=== PATIENT | female | born 1950 | race Caucasian/White ===

== ENCOUNTER → 2021-10-12 00:36 | Outpatient (CLI) | payer MEDICARE, OTHER, SELFPAY ==
--- OUTSIDE RECORDS SUMMARY | 2021-10-12 00:41 | XMS_ITS | Encounter Summary ---
:1950 Author Organization [facility] Address [address] [place] [address] Care Team Providers Name Role Phone Valerie Toledo MD Primary Care Provider Encounter Details Date Type Department Care Team Description 02/07/2014 Results Only [facility] Pablito Toledo MD Laboratory Services - [address] [facility] [address] [place] [address] [facility] [place] [address] [phone] Social History Tobacco Use Types Packs/Day Years Used Date Never Assessed Sex Assigned at Date Recorded Not on file documented as of this encounter Plan of Treatment Not on filedocumented as of this encounter Procedures Procedure Name Priority Date/Time Associated Diagnosis Comme nts PAP TEST- RESULT Routine 02/07/2014 0:00 EDT Resu lts for this ONLY procedure are i n the results section. documented in this encounter Results PAP TEST- RESULT ONLY (02/07/2014 0:00 EDT) Pathology Report: CYTOPATHOLOGY REPORT [facility] Reports generated via electronic interface contain tripp ginal data; however they are lacking the format of the original re port. Caution should be taken when reading/interpreting unfo rmatted reports. Name: ? GARCÍA DAVISON ? Accession #: ? [id number] ? : ? 1950 (Age: 63) ??F ?Collect Da te: ? 02/07/2014 ? [facility] ? [facility] ? Receive Date: ? 02/10/20 14 ? Provider: VALERIE TOLEDO MD Copy to: ? Final Report SPECIMEN ADEQUACY ? Satisfactory for Evaluation - assessment of transformation zone component not appl icable ( e.g. atrophy, vaginal sample, hysterectomy) GENERAL CATEGORIZATION ? Negative for Intraepithelial Lesion or Malignan cy ?? Menstrual/ Status: ??Menopausal Specimen/Source: ??Pap Test, Cervix, ThinPrep Imaging System with manual evaluation Document reviewed and electronically signed by: ? Chris Greenfield, CT(ASCP) ? Report ??Date: 02/14/2014 14:15 HPV with Pap Test ? Date Ordered: ? 02/14/2014 ? Status: ?? Signed Out ?Date Complete: ? 02/16/2014 ? By: ??S ystem Interface ? Date Reported: ? 02/16/2014 ? Interpretation RESULT: Negative for HPV. No E6 or E7 mRNA is detected from HPV types 16,18,31,3 3,35, 39,45,51,52,56,58,59,66, and 68 by flame cutter media len amplification. Comments Document reviewed and electronically signed by: ? System Interface ? Report date: 02/16/2014 By the signature above, the attending physician certif ies that he/she has personally conducted a gross and/or microscopic examin ation of the described specimens and rendered or confirmed the above diagnosi s. End of Report Specimen Performing Organization Address City/State/ZIP Code Phon e Number [facility] [address] [place] [address] SERVICES [facility] [address] [place] [address] documented in this encounter Visit Diagnoses Not on filedocumented in this encounter Care Teams Special Events Coordinator Relationship Specialty Start Date End Date Valerie Toledo MD PCP - General 11/02/08 [address] [place] [address] documented as of this encounter
--- OUTSIDE RECORDS SUMMARY | 2021-10-12 00:41 | XMS_ITS | Encounter Summary ---
:1950 Author Organization [facility] Address [address] [place] [address] Care Team Providers Name Role Phone Valerie Toledo MD Primary Care Provider Encounter Details Date Type Department Care Team Description 02/12/2013 Hospital Encounter [facility] - S Unknown, Pro Timothy zayas MD 1 [facility] [phone] [place] [address] (Work) [phone] Social History Tobacco Use Types Packs/Day Years Used Date Never Assessed Sex Assigned at Date Recorded Not on file documented as of this encounter Discharge Disposition Disposition Code Departure Means Destination Home or Self Shelter documented in this encounter Plan of Treatment Not on filedocumented as of this encounter Visit Diagnoses Not on filedocumented in this encounter Care Teams Comber Fixer Relationship Specialty Start Date End Date Valerie Toledo MD PCP - General 11/02/08 [address] [facility],[address] [place] [address] documented as of this encounter
--- OUTSIDE RECORDS SUMMARY | 2021-10-12 00:41 | XMS_ITS | Encounter Summary ---
:1950 Author Organization [facility] Address [address] [place] [address] Care Team Providers Name Role Phone Valerie Toledo MD Primary Care Provider Encounter Details Date Type Department Care Team Description 04/17/2009 Hospital Encounter [facility] - Danilo Toledo MD Other [id number] [place] [id number] (Wo rk) Social History Tobacco Use Types Packs/Day Years Used Date Never Assessed Sex Assigned at Date Recorded Not on file documented as of this encounter Discharge Disposition Disposition Code Departure Means Destination Home or Self Care documented in this encounter Plan of Treatment Not on filedocumented as of this encounter Visit Diagnoses Not on filedocumented in this encounter Care Teams Parish Visitor Relationship Specialty Start Date End Date Valerie Toledo MD PCP - General 11/02/08 [address] [place] [address] documented as of this encounter
--- OUTSIDE RECORDS SUMMARY | 2021-10-12 00:41 | XMS_ITS | Encounter Summary ---
:1950 Author Organization [facility] Address [address] [place] [address] Care Team Providers Name Role Phone Valerie Toledo MD Primary Care Provider Encounter Details Date Type Department Care Team Description 08/06/2017 Hospital Encounter [facility]- Heidi Unknown, Provider, [facility] 7[address] [facility] [phone] [place] [address] (Work) [phone] Social History Tobacco Use Types Packs/Day Years Used Date Never Assessed Sex Assigned at Date Recorded Not on file documented as of this encounter Discharge Disposition Disposition Code Departure Means Destination Home or Self Penitentiary documented in this encounter Plan of Treatment Not on filedocumented as of this encounter Visit Diagnoses Not on filedocumented in this encounter Care Teams Elephant Tamer Relationship Specialty Start Date End Date Valerie Toledo MD PCP - General 11/02/08 79 [facility] 1 [place] [address] documented as of this encounter
--- OUTSIDE RECORDS SUMMARY | 2021-10-12 00:41 | XMS_ITS | Encounter Summary ---
:1950 Author Organization [facility] Address [address] [place] [address] Care Team Providers Name Role Phone Unavailable Primary Care Provider Unavailable Encounter Details Date Type Department Care Team Description 10/28/2008 Orders Only [facility] Sergio Curran MD Laboratory Services - [address] [place] [address] [address] [facility] [place], [place] [address] [phone] Social History Tobacco Use Types Packs/Day Years Used Date Never Assessed Sex Assigned at Date Recorded Not on file documented as of this encounter Plan of Treatment Not on filedocumented as of this encounter Procedures Procedure Name Priority Date/Time Associated Diagnosis Comme [facility] SURGICAL PATHOLOGY Routine 10/28/2008 0:00 EDT Re sults for this procedure are i n the results section. documented in this encounter Results SURGICAL PATHOLOGY (10/28/2008 0:00 EDT) Pathology Report: SURGICAL PATHOLOGY REPORT ? [facility] Reports generated via ForMune interface contain original data; ? LAB however they are lacking the format of the original report. ? Caution should be taken when reading/interpreting unformatted reports. ? Name: ? GREEN, GARCÍA ? Accession #: ? [id number] ? : ? 1950 (Age: 57) ??F ? Collec t Date: ? 10/28/2008 ? Location: ? [facility] ? Re ceive Date: ? 10/31/2008 ? Provider: KALEB CURRAN MD ? Copy to: ISIDRO MONIQUE MD ? Final Pathologic Diagnosis: ? Gallbladder, cholecys tectomy: ? 1. ?Chronic cho lecystitis. ? 2. ? Cholelithiasis. ? Document reviewed and electr onically signed by: ? Theo J. Candelaria, MD ? Report ??Date: 11/02/2008 16 :49 ? By the signature above, the attending physician certifies that he/she has ? personally conducted a gross and/or microscopic examination of the described ? specimens and rendered or co nfirmed the above diagnosis. ? Specimen(s) Received: ? Gallbladder ? Clinical History: ? Cholecystitis ? Gross Description: ? Received in formalin labelled García Villanueva is an intact 6.5 x 3.0 x ?? 1.5 cm gallbladder with rubia ched 0.5 cm in length by 0.5 cm in diameter segment of patent cystic duct, the m argin of which is inked blue. The serosa is ? green-ordaz, smooth and glist ening with a small amount of adherent yellow-english ? fat. ??Opening the specimen reveals a moderate amount of green bile as well as ?? six black, granular cholelit hs that range from 0.3 ??0.7 cm in greatest ? dimension. The mucosa is gre en-black and velvety with no lesions or masses ? identified. ??The average wa ll thickness is 0.2 cm. ??Turret Punch Operator sections are submitted in a single casset te. ??(Wojciech Amaro/mms ? End of Report ? Specimen Performing Organization Address City/State/ZIP Code Phon e Number [facility] [address] [place] [address] SERVICES [facility] [address] [place] [address] documented in this encounter Visit Diagnoses Not on filedocumented in this encounter
--- OUTSIDE RECORDS SUMMARY | 2021-10-12 00:41 | XMS_ITS | Encounter Summary ---
:1950 Author Organization [facility] Address [address] [place] [address] Care Team Providers Name Role Phone Valerie Toledo MD Primary Care Provider Encounter Details Date Type Department Care Team Description 12/03/2006 Results Only [facility] - Momo Toledo MD Maple conversion [address] [facility] 1 [address] [place] [address] [place], [place] [id number] [phone] Social History Tobacco Use Types Packs/Day Years Used Date Never Assessed Sex Assigned at Date Recorded Not on file documented as of this encounter Plan of Treatment Not on filedocumented as of this encounter Procedures Procedure Name Priority Date/Time Associated Diagnosis Comme [facility] CYTOPATHOLOGY Routine 12/03/2006 0:00 EDT Results for this procedure are i n the results section . documented in this encounter Results CYTOPATHOLOGY (12/03/2006 0:00 EDT) Pathology Report: CYTOPATHOLOGY REPORT [facility] Reports generated via electronic interface contain tripp ginal data; however they are lacking the format of the original re port. Caution should be taken when reading/interpreting unfo rmatted reports. Name: ? GARCÍA DAVISON ? Accession #: ? [id number] : ? 1950 (Age: 55) ??F ?Collect Date: ? 11/19 Location: ? [facility] ? Receive Date: ? 12/05/2006 Provider: ?VALERIE TOLEDO MD Copy to: ? Specimen/Source: ? ThinPrep Pap Test, Cervix/Endocervix, processed on Teramind ThinPrep Imaging System, with manual evaluation Last Menstrual Period: ? Menstrual/ Status: ? Menopausal Other: ? HPVA - HPV testing requested if ASC-US on the current ThinPrep Pap test. ? SPECIMEN ADEQUACY ? Satisfactory for Evaluation - transformation zone component present GENERAL CATEGORIZATION ? Negative for Intraepithelial Lesion or Malignan cy ? Document reviewed and electronically signed by: ? ANGELITO Arnold(ASCP) ? Report Date: ??12/10/2006 10:04 End of Report Specimen Performing Organization Address City/State/ZIP Code Phon e Number [facility] [address] [place] [address] SERVICES [facility] [address] [place] [address] documented in this encounter Visit Diagnoses Not on filedocumented in this encounter Care Teams Reed Or Wind Instrument Repairer Relationship Specialty Start Date End Date Valerie Toledo MD PCP - General 11/02/[address] [place] [address],[facility] 1 [place] [address] documented as of this encounter
--- OUTSIDE RECORDS SUMMARY | 2021-10-12 00:41 | XMS_ITS | Encounter Summary ---
:1950 [place] [address] Care Team Providers Name Role Phone Valerie Toledo MD Primary Care Provider Encounter Details Date Type Department Care Team Description 10/01/2021 Orders Only [place] [facility] Disla [facility] MD Rivera pulmonary disease, [facility] [place] [address] (Primary Dx) [phone] [facility] [place], [place] [address] Social History Tobacco Use Types Packs/Day Years Used Date Never Assessed Sex Assigned at Date Recorded Not on file documented as of this encounter Plan of Treatment Not on filedocumented as of this encounter Results XR Chest PA & Lateral (Generic) (10/09/2021 11:30 AM EDT) Anatomical Region Laterality Modality Chest N/A Digital Radiography Specimen (Source) Anatomical Location Collection Method / Collectio n Time Received Time / Laterality Volume Impressions 10/09/2021 2:36 PM EDT 1. ??No acute cardiopulmonary process. 2. ??Sequela of chronic obstructive pulm onary disease. I have personally reviewed the image(s) and the resident's interpretation and agree with the findings, Radha Ruiz MD at 10/09/2021 2:36 PM Thank you for letting us participate in the care of this patient. ??If you are a health care provider and have any questi ons regarding this report, please contact the number below. ??For patients who have questions please contact the health skin care specialist that requested your imaging first. ? Narrative 10/09/2021 2:36 PM EDT EXAMINATION: XR CHEST PA AND LATERAL (GENERIC) CLINICAL HISTORY: COPD TECHNIQUE: PA and lateral views of the chest COMPARISON: Chest radiograph dated 03/31/2020 and FINDINGS: No focal opacity. Hyperinflated lungs, d iffuse coarse interstitial markings and flattened hemidiaphragms. No pneumothora x or pleural effusion. Cardiomediastinal and hilar silhouettes are unremarkable. No acute osseous abnormality. Small hiatal hernia unchanged since 2018. 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 EXAMINATION: XR CHEST PA AND LATERAL (GE NERIC) CLINICAL HISTORY: COPD TECHNIQUE: PA and lateral views of the chest COMPARISON: Chest radiograph dated 03/31/2020 and FINDINGS: No focal opacity. Hyperinflated lungs, d iffuse coarse interstitial markings and flattened hemidiaphragms. No pneumothora x or pleural effusion. Cardiomediastinal and hilar silhouettes are unremarkable. No acute osseous abnormality. Small hiatal hernia unchanged since 2018. Post erior RIGHT diaphragmatic hernia unchanged since CT from 2014 IMPRESSION 1. No acute cardiopulmonary process. 2. Sequela of chronic obstructive pulmon kevin disease. I have personally reviewed the image(s) and the resident's interpretation and agree with the findings, Radha Ruiz MD at 10/09/2021 2:36 PM Thank you for letting us participate in the care of this patient. If you are a health care provider and have any questi ons regarding this report, please contact the number below. For patients w ho have questions please contact the health skin care specialist that requested your imaging first. Kvng Disla Jr., MD IMG DX ORDERABLES documented in this encounter Visit Diagnoses Diagnosis Chronic obstructive pulmonary disease, u nspecified COPD type - Primary Chronic obstructive pulmonary disease, u nspecified COPD type documented in this encounter Care Teams Chinese Teacher Relationship Specialty Start Date End Date Valerie Toledo MD PCP - General 03/13/10 10/08/21 documented as of this encounter
--- OUTSIDE RECORDS SUMMARY | 2021-10-12 00:41 | XMS_ITS | Encounter Summary ---
:[address] [facility] Address [address] [place] [address] Care Team Providers Name Role Phone Valerie Toledo MD Primary Care Provider Encounter Details Date Type Department Care Team Description 02/12/2013 Results Only [facility] Simón Curran , Laboratory Services - [address] [place] [address] [place] [address] [place], [place] [address] [phone] Social History Tobacco Use Types Packs/Day Years Used Date Never Assessed Sex Assigned at Date Recorded Not on file documented as of this encounter Plan of Treatment Not on filedocumented as of this encounter Procedures Procedure Name Priority Date/Time Associated Diagnosis Comme [facility] SURGICAL PATHOLOGY Routine 02/12/2013 7:28 EDT Re sults for this procedure are i n the results section. documented in this encounter Results SURGICAL PATHOLOGY (02/12/2013 7:28 EDT) Pathology Report: SURGICAL PATHOLOGY REPORT [facility] Reports generated via electronic interface contain tripp ginal data; LAB however they are lacking the format of the original re port. Caution should be taken when reading/interpreting unfo rmatted reports. Name: ? GARCÍA DAVISON ? Accession #: ? [id number] ? : ? 1950 (Age: 62) ??F ? Collect Date: ? 02/12/2013 ? Location: ? [facility] ? Receive Date: ? 02/14/20 13 ? Provider: SIMÓN CURRAN DO Copy to: VALERIE TOLEDO MD ? Final Pathologic Diagnosis: COLON, SIGMOID, COLECTOMY: - ??Acute diverticulitis with perforation and microabs cess formation. - ??Acute and organizing serositis. - ??Diverticulosis. - ??Resection margins viable. Document reviewed and electronically signed by: HETAL HORTON MD Report ??Date: 02/17/2013 10:58 By the signature above, the attending physician certif ies that he/she has personally conducted a gross and/or microscopic examin ation of the described specimens and rendered or confirmed the above diagnosi s. Specimen(s) Received: Sigmoid colon Clinical History: Perforated diverticulitis Gross Description: ? Received in formalin labelled with proper patient identification (initials G., C.) and sigmoid colon is an unorie nted segment of sigmoid colon (16.0 cm in length x 4.0 cm in lumina l circumference), that is received opened. There is a moderate amount of attached firm, hyperemic mesenter y with yellow exudate. ? Several diverticula a re present, located in the end portion of the specimen with surrounding hemorrhage or evidence of acute inflammation. ??A focal possible fistula tract is identified. The wall in the region of the diverticula is thickened, ranging from 0.2 cm to 0.5 cm. ?The mucosa is pink- english with the usual folds. The serosa is dark red and covered with brown-yellow exudate with a focal a gonzález of disruption (2.0 cm) ? Pipelines Laborer sections are submitted as follow s: BLOCK CARTER 1, 2- ??end margin 3, 4- ??opposing end margin 5- ??diverticula 6-8- ??diverticula and perforated serosa Dr. Fitzpatrick 02/15/2013 01:38 PM End of Report Specimen Performing Organization Address City/State/ZIP Code Phon e Number [facility] [address] [place] [address] SERVICES [facility] [address] [place] [address] documented in this encounter Visit Diagnoses Not on filedocumented in this encounter Care Teams Dog Or Horse Racing Official Relationship Specialty Start Date End Date Valerie Toledo MD PCP - General 11/02/08 [address] [place] [address] documented as of this encounter
--- OUTSIDE RECORDS SUMMARY | 2021-10-12 00:41 | XMS_ITS | Encounter Summary ---
:1950 Author Organization [facility] Address [address] [place] [address] Care Team Providers Name Role Phone Valerie Toledo MD Primary Care Provider Encounter Details Date Type Department Care Team Description 02/18/2001 Results Only [facility] - Kaleb Curran MD Maple conversion [address] [place] [address] [place], [place] [id number] [phone] Social History Tobacco Use Types Packs/Day Years Used Date Never Assessed Sex Assigned at Date Recorded Not on file documented as of this encounter Plan of Treatment Not on filedocumented as of this encounter Procedures Procedure Name Priority Date/Time Associated Diagnosis Comme [facility] SURGICAL PATHOLOGY Routine 02/18/2001 0:00 EST Re sults for this procedure are i n the results section. documented in this encounter Results SURGICAL PATHOLOGY (02/18/2001 0:00 EST) Pathology SURGICAL PATHOLOGY REPORT JACINTO AVILA Report: Reports generated via electronic interface contain tripp ginal data; LAB however they are lacking the format of the original re port. Caution should be taken when reading/interpreting unfo rmatted reports. Name: ? DEDE DAVISON ? Accession #: ? [id number] ? : ? 1950 (Age: 50) ??F ? Collect Date: ? 02/18/2001 ? Location: ? [facility] ? Receive Date: ? 001 ? Provider: KALEB CURRAN MD Copy to: NIR ELLER MD ? Addendum ? Date Ordered: ? 02/27/2001 ? Status: Si gned Out ? Date Complete: ? 02/27/2001 ? By: Shereen Branch ? Date Reported: ? 02/27/2001 ? Addendum Diagnosis ? SYNOPTIC DIAGNOSIS FOR MALIGNANT BREAST TUMORS Laterality: ?Left ? AJCC: pT2, pN0 ?? Specimen: ?Excisional biopsy Tumor Type: ?Invasive lobular Tumor Size: ?2.5 x 2.3 x 1.3 cm Indra Combined Histologic Scores: ? Tubules: ?3 ? Nuclei: ?2 ? Mitotic Rate: ? 1 (actual count 6/ 10 HPF with field diameter of 0.54 mm) ? Total: ?6 Differentiation: ? Moderate Margins: ?Negative (CLOSEST MARGIN 0.3 CM IN FERIOR) DCIS: ? Absent % DCIS: ?N/A DCIS margins: ?N/A LVI: ? Not identified Lymph nodes: ?0/9 (positive/total count) ER/TX: ?Perf ormed on core biopsy ([id number], [place], [place]). ??Results pending. C-erb-B2: ? Performed on core biopsy ([id number], [place], [place]). ??Results pending. S-Phase/ploidy: Not performed. ?? FINAL PATHOLOGIC DIAGNOSIS: A. ?Left breast, palpation guided excisio nal biopsy: 1. ?Adenocarcin pepito, invasive lobular type, moderately differentiated. ? - Maximum tumor dimension 2.5 cm (AJCC:T2). - Surgical resection margins negative for invasive eric or. - Tumor extends to within: ? - 0.3 CM INFERIOR MARGIN. ? - 0.5 cm posterior margin. ? - Greater than 1.0 cm of remaining margins. - No lymphovascular invasion identified. 2. ?No ductal carcinoma in situ identifie d. 3. ?Lobular carcinoma in situ. ? - Microcalcifications identified in association with lobular carcinoma in situ. 4. ?Fibrocystic changes with: ? - Moderate epithelial hyperplasia. - Sclerosing adenosis. - Apocrine metaplasia. - Microcyst formation. - Dense interlobular fibrosis. 5. ?Previous bi opsy site with large hematoma showing organization which extends to black inked ? posterior margin. B. ?Left breast, re-excision posterior ma rgin: 1. ?No residual adenocarcinoma identified . 2. ?Fibrocystic changes with: ? - Moderate epithelial hyperplasia. - Sclerosing adenosis. - Adenosis. - Dense interlobular fibrosis. 3. ?Previous bi opsy site with large hematoma showing organization. 4. ?Skeletal muscle at deep margin with c hronic inflammation, granulation tissue, and old hemorrhage. C. ?Lymph node, sentinel node #1, left ax illa, excision: 1. ?One lymph node negative for met astatic adenocarcinoma (0/1). D. ?Lymph node, sentinel node #2, left ax illa, excision: 1. ?Two lymph nodes negativ e for metastatic adenocarcinoma (0/2). E. ?Soft tissue of left axilla, Levels I and II, axillary dissection: 1. ?Six lymph nodes negative for me tastatic adenocarcinoma (0/6) (AJCC:N0). Addendum Comment ? Section (A6) was repr ocessed and recut. ??This additional section shows the invasive lobular carcinoma t o be present 0.3 cm from the inferior margin rather than 0.6 cm as originally described. ??The remaining d iagnoses remained unchanged. ??This change in the inferior margin was discussed with Dr. Curran on 02/27/01. (Dr. Lee)/[facility] Document reviewed and electronically signed by: ? Nerissa Lee MD ? Report date: 02/27/2001 By the signature above, the attending physician certif ies that he/she has personally conducted a gross and/or microscopic examin ation of the described specimens and rendered or confirmed the above diagnosi s. Final Pathologic Diagnosis: ? SYNOPTIC DIAGNOSIS FOR MALIGNANT BREAST TUMORS ? Laterality: ? Left ?AJCC: pT2, pN0 Specimen: ?Excisional biopsy Tumor Type: ?Invasive lobular Tumor Size: ?2.5 x 2.3 x 1.3 cm Watts Combined Histologic Scores: ? Tubules: ?3 ? Nuclei: ?2 ? Mitotic Rate: ? 1 (actual count 6/ 10 HPF with field diameter of 0.54 mm) ? Total: ?6 Differentiation: ? Moderate Margins: ?Negative (closest margin 0.6 cm in ferior) DCIS: ? Absent % DCIS: ?N/A DCIS margins: ?N/A LVI: ? Not identified Lymph nodes: ?0/9 (positive/total count) ? ER/ TX: ? Performed on core bio psy ([id number], [place], [place]). ??Results ?pending. ? C-erb-B2: ? Performed on core biopsy ( 01-5, [place], [place]). ??Results ?pending. S-Phase/ploidy: Not performed. FINAL PATHOLOGIC DIAGNOSIS: ?? A. ?Left breast, palpation guided excisio nal biopsy: 1. ?Adenocarcin pepito, invasive lobular type, moderately differentiated. ? - Maximum tumor dimension 2.5 cm (AJCC:T2). - Surgical resection margins negative for invasive eric or. - Tumor extends to within: ? - 0.5 cm posterior margin. ? - 0.6 cm inferior margin. ? - Greater than 1.0 cm of remaining margins. - No lymphovascular invasion identified. 2. ?No ductal carcinoma in situ identifie d. 3. ?Lobular carcinoma in situ. ? - Microcalcifications identified in association with lobular carcinoma in situ. 4. ?Fibrocytic changes with: ? - Moderate epithelial hyperplasia. - Sclerosing adenosis. - Apocrine metaplasia. - Microcyst formation. - Dense interlobular fibrosis. 5. ?Previous bi opsy site with large hematoma showing organization which extends to black inked ? posterior margin. B. ?Left breast, ??re-excision posterior margin: 1. ?No residual adenocarcinoma identified . 2. ?Fibrocystic changes with: ? - Moderate epithelial hyperplasia. - Sclerosing adenosis. - Adenosis. - Dense interlobular fibrosis. 3. ?Previous bi opsy site with large hematoma showing organization. 4. ?Skeletal muscle at deep margin with c hronic inflammation, granulation tissue, and old ?hemorrhage. C. ?Lymph node, sentinel node #1, left ax illa, excision: 1. ?One lymph node negative for met astatic adenocarcinoma (0/1). D. ?Lymph node, sentinel node #2, left ax illa, excision: 1. ?Two lymph nodes negativ e for metastatic adenocarcinoma (0/2). E. ?Soft tissue of left axilla, Levels I and II, axillary dissection: 1. ?Six lymph nodes negative for me tastatic adenocarcinoma (0/6) (AJCC:N0). Comment: ? Since the reexcision of the posterior ??margin shows no carcinoma, the final assessment of the posterior margin is gredater than 1.0 cm. Additional sections of (A6), (E2), (E4) and (E5) are examined. ??Please no te that the surgical pathology report from [place], [place] ([id number]) on the diagnostic core biopsy of this carcinoma is received with the specimen and states that estrogen and progesterone studies as w ell as c-erb-B2 were performed on the core biopsi es. ??This case was discussed with Dr. Curran on 02/25/01.(Dr. Lee)/[facility] Document reviewed and electronically signed by: Nerissa Lee MD Report ??Date: 02/25/2001 16:07 By the signature above, the attending physician certif ies that he/she has personally conducted a gross and/or microscopic examin ation of the described specimens and rendered or confirmed the above diagnosi s. Specimen(s) Received: A. ?Bienville node #1 (#1) B. ?[place] node #2 (#2) C. ?Left axilla, Level I, Level II (#3) D. ?Left breast mass ??lateral; incised in black stained area posterior (hematoma wall) (#4) E. ?Hematoma wa ll posterior to #4 ??suture superior (short) ??long sut. Lateral (#5) Clinical History: ? Ca L breast Gross Description: ? Received in formalin labelled Green and 4 ?? left breast mass is a english-yellow to white oriented fibrofatty soft tissue which weighs 238 grams and measures 12.2 cm from lateral to medial, 8.6 cm from superior to inferior and 4.0 cm from anterior to posterior. There is a sh ort and long suture which are designated as the superior a nd lateral margins respectively, as per the surgical notes and Dr. Nir Eller. The posteri or aspect is received previously inked and incised. On the posterior aspect, the margin is ta n-brown, diffusely hemorrhagic, previously inked black and incised by the surgeon as per the accompanying requisition sli p and surgical notes. ??Upon sectioning, there is a ordaz-white firm stellate 2.5 x 2.3 x 1.3 cm hemorrhagi c gritty mass which grossly measures 0.6 cm from the inferior margin, less than 0.1 cm from the posterior margin, 1.2 cm from the anteri or margin and greater than 1.5 cm from all remaining margins. ??The remaining cut surfaces have multiple focal areas of hemorrhage. ??The remaining cut surfaces are predomina ntly yellow lobulated adipose tissue admixed with a minimal amount of dense english-white firm fibrous tissues. ??Prior to sectioning, the anterior aspect is inked blue, posterior black (previously inked), superior ??red, inferior ??y karen, and medial and lateral aspects inked green. The specimen is serially sectioned medial to lateral and patient admitting representative sections are submitted as becky galvez: BLOCK CARTER A1 ?Medial margin, reverse en face A2 ?Spinning Bath Person anterior margin, media l one half A3 ?Spinning [place] Person inferior margin, media l one half A4 ?Spinning [place] Person superior margin, media l one half A5 ?Spinning [place] Person posterior margin, medi al one half A6 ?Mass to inferior margin A7 ?Mass to anterior margin A8, A9 ?Mass to posterior margin A10 ?Region of mass to the superior floyd n A11 ?Mass to the inferior margin A12 ?Mass to the posterior margin A13 ?Mass to the anterior margin A14 ?Posterior margin ??lateral one half A15 ?Inferior margin ??lateral one half A16 ?Superior margin ??lateral one half A17 ?Lateral margin, reverse en face Received in formalin baudilio d Green and #5 ??left breast mass is a product of an oriented english-yellow to white fibrofatty soft tissue which weighs 104 grams and measures 8.5 cm medial t o lateral, 5.0 cm anterior to posterior, and 4.6 cm superior to inferior. There is a short and long suture designating the superior and lateral aspects respecti vely as per the accompanying requisition slip. ??On the anterior aspect there is a english-red h emorrhagic cavity which measures 5.5 x 3.0 x 3.0 cm. ??This hemorrh agic cavity opens up to the anterior margin. ??On the posterior lateral aspect there are multi ple foci of red-brown attached muscle. Prior to sectioning, the ant erior aspect is inked blue, superior ??red, inferior yellow, posterior ??black, and medial and lateral aspe cts inked green. ??The remaining cut surfaces are p redominantly yellow lobulated adipose tissue admixed with a minimal amount of den se english-white firm fibrous tissues with a moderate of amount dispersed red-brown hemorrhage. ??No discrete n odules are identified. Spinning Bath Person sections are submitted as follows: BLOCK CARTER B1 ?Medial margin, reverse en face B2 ?Spinning Bath Person superior margin ??medi al one half B3 ?Representat annie hemorrhagic cavity and posterior margin ??medial one half B4 ?Spinning Bath Person inferior margin ??medi al one half B5 ?Spinning Bath Person anterior margin ??medi al one half B6, B7 ?Represe ntative posterior margin with hemorrhagic cavity to inferior margin, central aspect B8 ?Spinning Bath Person hemorrha gic cavity to inferior margin, central aspects B9 ?Representat annie hemorrhagic cavity to posterior margin, central aspects B10 ?Spinning Bath Person superior margin ??lat eral one half B11 ?Representa tive posterior margin with hemorrhagic cavity ??lateral one half B12 ?Representa tive hemorrhagic cavity to inferior margin, lateral one half B13 ?Representa tive hemorrhagic cavity to inferior margin, lateral one half B14 ?Representa tive hemorrhagic cavity to posterior superior one half B15 ?Representa tive anterior superior posterior margin, lateral one half B16 ?Lateral margin, reverse en face B17 ?Spinning Bath Person posterior margin, med ial one half Received in formalin baudilio d Green and 1 ??sentinel node #1 is a english-yellow partially fragmented 1.9 x 1 .6 x 1.2 cm possible fatty replaced lymph node. ??No discrete nodules are identified. The specimen is longitudinally trisected and entirely submitted as (C1) and (C2). Received in formalin baudilio d Green and 2 ??sentinel node #2 is a english-yellow multilobulated portion of fibroadipose tissue me asuring 3.7 x 2.5 x 0.5 cm in aggregate. ??Upon sectioning , two possible nodes are identified measuring 0.6 x 0.5 x 0.3 cm and 2.2 x 0.7 x 0.5 cm. ??Each node is longitudinally bisected and entirely submitted with the smaller as (D1) and the la rger as (D2). Received in formalin labelled Green an d 3 ??L axilla Level I, Level II are english-yellow to white lobulate d fibrofatty unoriented soft tissues which measures 7.0 x 4.0 x 2.0 cm. ??Multip le possible nodes are identified ranging from 0.4 x 0.3 x 0.2 cm to 2.5 x 2.4 x 1.0 cm. ??The possible nodes are entirely submitted as follows: BLOCK CARTER E1 ?Questionable possible node E2 ?Intact possible nodes E3 ?One possible node longitudinally bise cted E4, E5 ?One pos sible node longitudinally bisected, one half in each cassette (Jackson Crawford-)/[facility] End of Report Specimen Performing Organization Address City/State/ZIP Code Phon e Number [facility] [address] [place] [address] SERVICES [facility] [address] [place] [address] documented in this encounter Visit Diagnoses Not on filedocumented in this encounter Care Teams Corn Press Operator Relationship Specialty Start Date End Date Valerie Toledo MD PCP - General 11/02/08 [address] [facility],[address] [place] [address] documented as of this encounter
--- OUTSIDE RECORDS SUMMARY | 2021-10-12 00:41 | XMS_ITS | Encounter Summary ---
:1950 Author Organization [facility] [place] [address] Care Team Providers Name Role Phone Eileen Oates DO Primary Care Provider Encounter Details Date Type Department Care Team Description 10/09/2021 Hospital Encounter XRay at [facility] Kvng Disla Chronic obstructive [address] [place] [address] Dr Rivera MD pulmonary disease, [place], [place] [facility] unspecified [place] [address] liz [phone] [place] [address] Social History Tobacco Use Types Packs/Day Years Used Date Never Assessed Sex Assigned at Date Recorded Not on file documented as of this encounter Medications at Time of Discharge Medication Sig Dispensed Refills Start Date End Date CIS Free Text Med - Daily Multivitamin 0 08/01/2008 CIS Free Text Med - Albuterol 0 2008 ASPIRIN ORAL 0 08/01/2008 ranitidine (ZANTAC) 300 mg tablet 0 LORazepam (ATIVAN) 0.5 mg tablet 0 diclofenac (VOLTAREN) 75 mg EC tablet 0 08/01/2008 IPRATROPIUM BROMIDE (ATROVENT NASL) 0 08/01/2008 fluticasone-salmeterol (ADVAIR DISKUS) 0 08/01/2008 250-50 mcg/dose diskus inhaler lisinopril (PRINIVIL;ZESTRIL) 10 mg tablet 0 08/01/2008 ipratropium-albuterol (DUONEB) 0.5 mg-3 0 08/01/2008 mg(2.5 mg base)/3 mL nebulizer solution tiotropium (SPIRIVA WITH HANDIHALER) 18 mcg 0 08/01/2008 inhalation capsule Mometasone (NASONEX) 50 mcg/Actuation Rosalie 0 08/01/2008 documented as of this encounter Plan of Treatment Not on filedocumented as of this encounter Procedures Procedure Name Priority Date/Time Associated Diagnosis Comme nts XR CHEST PA AND Routine 10/09/2021 11:30 AM Chronic obstructiv e Results for this LATERAL EDT pulmonary disease, procedure are in unspecified COPD the results type section. documented in this encounter Results XR Chest PA & [...] who have questions please contact the health lead caregiver that requested your imaging first. ? Narrative [...] osseous abnormality. Small hiatal hernia unchanged since 2017. 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 EXAMINATION: XR CHEST PA AND LATERAL (Smit OvensIC) CLINICAL HISTORY: COPD TECHNIQUE: PA and lateral views of the chest COMPARISON: Chest radiograph dated 03/31/2020 and FINDINGS: No focal opacity. Hyperinflated lungs, d iffuse coarse interstitial markings and flattened hemidiaphragms. No pneumothora x or pleural effusion. Cardiomediastinal and hilar silhouettes are unremarkable. No acute osseous abnormality. Small hiatal hernia unchanged since 2017. Post erior RIGHT diaphragmatic hernia unchanged since [...] ho have questions please contact the health lead caregiver that requested your imaging first. Kvng Disla Jr., MD IMG DX ORDERABLES documented in this encounter Visit Diagnoses Diagnosis Chronic obstructive pulmonary disease, u nspecified COPD type documented in this encounter Care Teams Guard Chief Relationship Specialty Start Date End Date Eileen Oates DO PCP - General Family Medicine 10/09/[address] [place] [address] [address] [place] [address] documented as of this encounter
--- OUTSIDE RECORDS SUMMARY | 2021-10-12 00:41 | XMS_ITS | Encounter Summary ---
:1950 [place] [address] Care Team Providers Name Role Phone Valerie Toledo MD Primary Care Provider Encounter Details Date Type Department Care Team Description 11/03/2013 Telephone Ophthalmology at [facility] Isidra Reyes MD [facility] [place] [address] OPHTHALMOLOGY DEPT. [phone] [place] [id number] (Wo rk) Social History Tobacco Use Types Packs/Day Years Used Date Never Assessed Sex Assigned at Date Recorded Not on file documented as of this encounter Miscellaneous Notes Telephone Encounter - Selam Her COT - 11/03/2013 12:11 PM EDT LM with corporate legal secretary that patient cancelled appointment with [facility] and did not reschedule. Notes sent to be scanned in, incase patient calls to reschedule documented in this encounter Plan of Treatment Not on filedocumented as of this encounter Visit Diagnoses Not on filedocumented in this encounter Care Teams Counsel Relationship Specialty Start Date End Date Valerie Toledo MD PCP - General 03/13/10 10/08/21 documented as of this encounter
--- OUTSIDE RECORDS SUMMARY | 2021-10-12 00:41 | XMS_ITS | Encounter Summary ---
:1950 Author Organization [facility] [place] [address] Care Team Providers Name Role Phone Eileen Oates DO Primary Care Provider Encounter Details Date Type Department Care Team Description 10/10/2021 Interpretation Only [facility] Eileen Oates DO [address] [facility] [address] [place] [id number] [place] [address] [phone] (Wo rk) Social History Tobacco Use Types Packs/Day Years Used Date Never Assessed Sex Assigned at Date Recorded Not on file documented as of this encounter Plan of Treatment Pending Results Name Type Priority Associated Diagnoses Date/Ti me Mammo Screening Cad and Imaging Routine 09/20 11:09 AM EDT Rivas Bilateral documented as of this encounter Visit Diagnoses Not on filedocumented in this encounter Care Teams Internship Coordinator Relationship Specialty Start Date End Date Eileen Oates DO PCP - General Family Medicine 10/09/[address] [address] documented as of this encounter
--- OUTSIDE RECORDS SUMMARY | 2021-10-12 00:41 | XMS_ITS | Encounter Summary ---
:1950 Author Organization [facility] [place] [address] Care Team Providers Name Role Phone Eileen Oates DO Primary Care Provider Encounter Details Date Type Department Care Team Description 10/10/2021 Interpretation Only [facility] Eileen Oates DO 90 [facility] [address] [place] [phone] [place] [address] [phone] (Wo rk) Social History Tobacco Use Types Packs/Day Years Used Date Never Assessed Sex Assigned at Date Recorded Not on file documented as of this encounter Plan of Treatment Pending Results Name Type Priority Associated Diagnoses Date/Ti me Mammo Screening Cad Imaging Routine 10/11/19 11:09 AM EDT Bilateral documented as of this encounter Visit Diagnoses Not on filedocumented in this encounter Care Teams Milk Runner Relationship Specialty Start Date End Date Eileen Oates DO PCP - General Family Medicine 10/09/[address] [address] documented as of this encounter
--- OUTSIDE RECORDS SUMMARY | 2021-10-12 00:41 | XMS_ITS | Encounter Summary ---
:1950 Author Organization [facility] Address [address] [place] [address] Care Team Providers Name Role Phone Valerie Toledo MD Primary Care Provider Encounter Details Date Type Department Care Team Description 02/27/2004 Results Only [facility] - Tolu Mensah MD Maple conversion [address] [place] [address] [place], [place] [id number] [phone] Social History Tobacco Use Types Packs/Day Years Used Date Never Assessed Sex Assigned at Date Recorded Not on file documented as of this encounter Plan of Treatment Not on filedocumented as of this encounter Procedures Procedure Name Priority Date/Time Associated Diagnosis Comme [facility] SURGICAL PATHOLOGY Routine 02/27/2004 0:00 EST Re sults for this procedure are i n the results section. documented in this encounter Results SURGICAL PATHOLOGY (02/27/2004 0:00 EST) Pathology Report: SURGICAL PATHOLOGY REPORT JACINTO CARDENAS Reports generated via electronic interface contain tripp ginal data; LAB however they are lacking the format of the original re port. Caution should be taken when reading/interpreting unfo rmatted reports. Name: ? GARCÍA DAVISON ? Accession #: ? [id number] ? : ? 1950 (Age: 53) ??F ? Collect Date: ? 02/27/2004 ? Location: ? [facility] ? Receive Date: ? 02/28/20 04 ? Provider: PRAFUL MENSAH MD Copy to: MI COOPER DO ? Final Pathologic Diagnosis: ? Cecum, biopsy: 1. ?Mild acute colitis. 2. ?No evidence of chronicity. Comment: ? The changes seen in this biopsy are non-specifi c. ??(Dr. Smith)/[facility] Document reviewed and electronically signed by: Harris Smith MD Report ??Date: 03/01/2004 12:03 By the signature above, the attending physician certif ies that he/she has personally conducted a gross and/or microscopic examin ation of the described specimens and rendered or confirmed the above diagnosi s. Specimen(s) Received: ? Cecum Clinical History: ? RLQ pain, bx erythematous mucosa ileocecal valv e Gross Description: ? Received in Hollande's fixative labelled Green and cecum are three english-pink irregular soft tiss ue fragments ranging from 0.3 x 0.2 x 0.2 cm to 0.8 x 0.2 x 0.2 cm. ??The specimen is entirely submitted i n one cassette. ??(Jackson Crawford)/[facility] End of Report Specimen Performing Organization Address City/State/ZIP Code Phon e Number [facility] [address] [place] [address] SERVICES [facility] [address] [place] [address] documented in this encounter Visit Diagnoses Not on filedocumented in this encounter Care Teams Powder Operator Relationship Specialty Start Date End Date Valerie Toledo MD PCP - General 11/02/08 [address] [facility],[address] [place] [id number] documented as of this encounter
--- OUTSIDE RECORDS SUMMARY | 2021-10-12 00:41 | XMS_ITS | Encounter Summary ---
:1950 Author Organization [facility] Address [address] [place] [address] Care Team Providers Name Role Phone Valerie Toledo MD Primary Care Provider Encounter Details Date Type Department Care Team Description 07/14/2012 Results Only [facility] Pablito Toledo MD Laboratory Services - [address] [facility] [place] [address] 7[address] [facility] [place] [address] [phone] Social History Tobacco Use Types Packs/Day Years Used Date Never Assessed Sex Assigned at Date Recorded Not on file documented as of this encounter Plan of Treatment Not on filedocumented as of this encounter Procedures Procedure Name Priority Date/Time Associated Diagnosis Comme nts PAP TEST- RESULT Routine 07/14/2012 0:00 EDT Resu lts for this ONLY procedure are i n the results section. documented in this encounter Results PAP TEST- RESULT ONLY (07/14/2012 0:00 EDT) Pathology Report: CYTOPATHOLOGY REPORT [facility] Reports generated via electronic interface contain tripp ginal data; however they are lacking the format of the original re port. Caution should be taken when reading/interpreting unfo rmatted reports. Name: ? GARCÍA DAVISON ? Accession #: ? [id number] : ? 1950 (Age: 61) ??F ?Collect Date: ? 06/20 Location: ? [facility] ? Receive Date: ? 07/15/2012 Provider: ?VALERIE TOLEDO MD Copy to: ? Specimen/Source: ? Pap Test, Cervix, ThinPrep Imaging System with manual evaluation Last Menstrual Period: ? SPECIMEN ADEQUACY ? Satisfactory for Evaluation - transformation zone component present GENERAL CATEGORIZATION ? Negative for Intraepithelial Lesion or Malignan cy ? Document reviewed and electronically signed by: ? ANGELITO Silverman(ASCP) ? Report Date: ??07/20/2012 12:31 End of Report Specimen Performing Organization Address City/State/ZIP Code Phon e Number [facility] [address] [place] [address] SERVICES [facility] [address] [place] [address] documented in this encounter Visit Diagnoses Not on filedocumented in this encounter Care Teams Information Security Director Relationship Specialty Start Date End Date Valerie Toledo MD PCP - General 11/02/08 [address] [place] [address] documented as of this encounter
--- OUTSIDE RECORDS SUMMARY | 2021-10-12 00:41 | XMS_ITS | Encounter Summary ---
:1950 Author Organization [facility] Address [address] [place] [address] Care Team Providers Name Role Phone Valerie Toledo MD Primary Care Provider Encounter Details Date Type Department Care Team Description 12/02/2008 Orders Only [facility] Pablito Toledo MD Laboratory Services - [address] [facility] [place] [address] 790 [facility] [place], [place] [id number] [phone] Social History Tobacco Use Types Packs/Day Years Used Date Never Assessed Sex Assigned at Date Recorded Not on file documented as of this encounter Plan of Treatment Not on filedocumented as of this encounter Procedures Procedure Name Priority Date/Time Associated Diagnosis Comme [facility] CYTOPATHOLOGY Routine 12/02/2008 0:00 EDT Results for this procedure are i n the results section . documented in this encounter Results CYTOPATHOLOGY (12/02/2008 0:00 EDT) Pathology Report: CYTOPATHOLOGY REPORT ? [facility] Reports generated via electr onic interface contain original data; ? however they are lacking the format of the original report. ? Caution should be taken when reading/interpreting unformatted reports. ? Name: ? GARCÍA DAVISON ? Accession #: ? [id number] ? : ? 1950 (Age: 58) ??F ?Collect Date: ? 12/02/2008 ? Location: ? [facility] ? Receive Date: ? 12/28/2008 ? Provider: ?VALERIE P RATT MD ? Copy to: ? Specimen/Source: ? Pap Test, Cervix/Endocervix, ThinPrep Imaging System ? with manual evaluation ? Last Menstrual Period: ? Menstrual/ Status: ? Menopausal ? Other: ? HPVA - HPV testing requested if ASC-US on the current ThinPrep Pap test. ? SPECIMEN ADEQUACY ? Unsatisfactory for Ev aluation, ? - insufficient numbers of sq uamous epithelial cells (less than 10% of expected ?? cellularity) ? GENERAL CATEGORIZATION ? Specimen processed an d examined, but unsatisfactory for evaluation of ? epithelial abnormality. ? Recommend repeat Pap test or further follow up, as clinically indicated. ? Document reviewed and electr onically signed by: ? Ronel Shaun, [place](ASCP ) ? Report Date: ??09/16/ 2009 10:01 ? End of Report ? Specimen Performing Organization Address City/[facility] Code Phon e Number [facility] [address] [place] [address] SERVICES [facility] [address] [place] [address] documented in this encounter Visit Diagnoses Not on filedocumented in this encounter Care Teams Cath Lab Radiology Technician Relationship Specialty Start Date End Date Valerie Toledo MD PCP - General 11/02/08 [address] [place] [address] documented as of this encounter
--- OUTSIDE RECORDS SUMMARY | 2021-10-12 00:41 | XMS_ITS | Encounter Summary ---
:1950 Author Organization [facility] Address [address] [place] [address] Care Team Providers Name Role Phone Valerie Toledo MD Primary Care Provider Encounter Details Date Type Department Care Team Description 08/06/2017 Results Only [facility] Dany Gibbons DO [phone] [address] [place], [place] [address] (Wo rk) Social History Tobacco Use Types Packs/Day Years Used Date Never Assessed Sex Assigned at Date Recorded Not on file documented as of this encounter Plan of Treatment Not on filedocumented as of this encounter Procedures Procedure Name Priority Date/Time Associated Diagnosis Comme [facility] SURGICAL PATHOLOGY Routine 08/06/2017 16:05 Resul ts for this EDT procedure are i n the results section. documented in this encounter Results SURGICAL PATHOLOGY (08/06/2017 16:05 EDT) Pathology Report: SURGICAL PATHOLOGY REPORT [facility] Reports generated via electronic interface contain tripp ginal data; LABORATORY however they are lacking the format of the original re port. SERVICES Caution should be taken when reading/interpreting unfo rmatted reports. Name: ? GARCÍA DAVISON ? Accession #: ? [id number] ? : ? 1950 (Age: 66 ) ??F ? Collect Date: ? 08/06/2017 ? Location: ? [facility] ? Receive Date: ? 8 ? Provider: DANY GIBBONS DO Copy to: VALERIE TOLEDO MD ? Final Pathologic Diagnosis: A. ??SMALL INTESTINE, SECOND PORTION OF DUODENUM, BIOP SY: - Unremarkable duodenal mucosa. - Negative for gluten-sensitive enteropathy. ?? B. ??STOMACH, ANTRUM, BIOPSY: - Reactive gastropathy. - Negative for Helicobacter pylori organisms. ?? C. ??STOMACH, GREATER CURVE, BIOPSY: - Unremarkable corpus-type mucosa. - Negative for Helicobacter pylori organisms. ?? D. ??ESOPHAGUS, AT 30 CM, BIOPSY: ? - Unremarkable squamous mucosa. ? - Negative for Campos's specialized-columnar e pithelium. - Negative for eosinophilic esophagitis. Document reviewed and electronically signed by: IZZY WALL MD Report ??Date: 08/11/2017 15:00 By the signature above, the attending physician certif ies that he/she has personally conducted a gross and/or microscopic examin ation of the described specimens and rendered or confirmed the above diagnosi s. Specimen(s) Received: A. ??2nd portion of duodenum B. ??Antrum C. ??Greater curve D. ??Esophagus at 30 cm Clinical History: Dysphagia Gross Description: A. ?Received in formalin labelled with proper p atient identification (initials G, C) and 2nd portion of duodenum ar e three fragments of english-pink tissue measuring 0.2 x 0.2 x 0.2 cm. The specimens are submitted entirely in A1. B. ?Received in formalin labelled with proper p atient identification (initials G, C) and antrum are two fragments of english-pink tissue measuring 0.2 x 0.2 x 0.2 cm. The specimens are submitted entirely i n B1. C. ?Received in formalin labelled with proper p atient identification (initials G, C) and greater curve is a single fragment of english-pink tissue (0.3 x 0.2 x 0.2 cm). The specimen is submitted entirely in C1. D. ?Received in formalin labelled with proper p atient identification (initials G, C) and esophag us is a single fragment of english-white tissue (0.3 x 0.2 x 0.1 cm). The specimen is submitted entirely in D 1. AMEENA Alamo (ASCP) 08/07/2017 4:14 PM End of Report Specimen Performing Organization Address City/State/ZIP Code Phon e Number [facility] [address] [place] [address] SERVICES documented in this encounter Visit Diagnoses Not on filedocumented in this encounter Care Teams Soaking Tank Worker Relationship Specialty Start Date End Date Valerie Toledo MD PCP - General 11/02/08 [address] [facility],[address] [place] [address] documented as of this encounter
--- OUTSIDE RECORDS SUMMARY | 2021-10-12 00:41 | XMS_ITS | Encounter Summary ---
:1950 Author Organization [facility] [place] [address] Care Team Providers Name Role Phone Valerie Toledo MD Primary Care Provider Encounter Details Date Type Department Care Team Description 10/01/2021 Orders Only Pulmonology at [facility] Kvng Disla Jr., [facility] [place] [address] [facility] [phone] PULMONARY MEDICI [place] [address] (Wo rk) Social History Tobacco Use Types Packs/Day Years Used Date Never Assessed Sex Assigned at Date Recorded Not on file documented as of this encounter Plan of Treatment Not on filedocumented as of this encounter Visit Diagnoses Not on filedocumented in this encounter Care Teams Aircraft Machinist Relationship Specialty Start Date End Date Valerie Toledo MD PCP - General 03/13/10 10/08/21 documented as of this encounter
--- OUTSIDE RECORDS SUMMARY | 2021-10-12 00:41 | XMS_ITS | Encounter Summary ---
:1950 Author Organization [facility] [place] [address] Care Team Providers Name Role Phone Valerie Toledo MD Primary Care Provider Encounter Details Date Type Department Care Team Description 02/17/2013 Ancillary Appointment PrayBrandin Chambers Jr., [address] [address] [facility] A [phone] [place], [place] [address] (Wo rk) Social History Tobacco Use Types Packs/Day Years Used Date Never Assessed Sex Assigned at Date Recorded Not on file documented as of this encounter Plan of Treatment Not on filedocumented as of this encounter Procedures Procedure Name Priority Date/Time Associated Diagnosis Comme nts ECHOCARDIOGRAM Routine 02/17/2013 Results for t his TRANSTHORACIC procedure are in the results section. documented in this encounter Results Echo Transthoracic (Complete) (02/17/2013) P athologist Signature EF 65% Narrative Brandin Crawley Jr., MD - 02/17/2013 Echocardiogram Final Report ??Dede Villanueva ??D.O.B.1950 [place] [address] INPATIENT PCP: VALERIE TOLEDO MD ??Indication: tachycardia Date of Study: 02/17/2013 Procedure: M- Mode, 2D, Doppler, and Col or Flow Doppler Quality: ?? Limited-no subcostal views, digital study Measurements ?(N = normal) Ascending Aorta: x (N <3.2), Aortic Root : x ??(N<3.7), Aortic Cusp:x (N >1.4) Left Atrium: 18 (N<20), Right Atrium:12( N<17 ) LV Septum:0.7 (N <1.1),LV diastolic: 3.6 (N <5.6), LV posterior:0.9(N <1.1),RV: x(N<0.7) Diastolic- E/A :0.7(N > 1.0), DT:296 (N< 240), IVRT: 55 (N <100), E': x Left Atrium: normal Mitral Valve: normal, ??trivial regurgit ation Left Ventricle: normal size EF 60% ?? di astolic function abnormal Segments: N-normal, PN- probably normal, H-hypokin etic, SH-severely hypo, A-akinetic Anteroseptal: base- N,mid- N, apex- N Anterior: base- N, mid- N, apex- N Anterolateral:base- N, mid- N, apex- N Posterolateral:base- N, mid-N Inferior: base-N,mid-N, apex-N Inferoseptal: ??Base-N,mid-N Aortic Valve: normal ??No regurgitation Aorta: probably normal Right Atrium: normal Tricuspid Valve: normal no regurgitation Right Ventricle: normal Pulmonic Valve: poorly seen Pericardium: normal comments/summary: ??No subcostal views, normal LV systolic function, abnormal diastolic function, t rivial MR Electronically signed: Brandin Crawley Jr, MD [facility] Historical Provider ECHO ORDERABLES documented in this encounter Visit Diagnoses Not on filedocumented in this encounter Care Teams Home Economist Relationship Specialty Start Date End Date Valerie Toledo MD PCP - General 03/13/10 10/08/21 documented as of this encounter
--- OUTSIDE RECORDS SUMMARY | 2021-10-12 00:41 | XMS_ITS | Encounter Summary ---
:1950 [place] [address] Care Team Providers Name Role Phone Valerie Toledo MD Primary Care Provider Encounter Details Date Type Department Care Team Description 10/01/2021 Telephone Pulmonology [place] [facility] [place] [address] Social History Tobacco Use Types Packs/Day Years Used Date Never Assessed Sex Assigned at Date Recorded Not on file documented as of this encounter Plan of Treatment Not on filedocumented as of this encounter Visit Diagnoses Not on filedocumented in this encounter Care Teams Bindery Chief Relationship Specialty Start Date End Date Valerie Toledo MD PCP - General 03/13/10 10/08/21 documented as of this encounter
--- OUTSIDE RECORDS SUMMARY | 2021-10-12 00:41 | XMS_ITS | Encounter Summary ---
:1950 Author Organization [facility] Address [address] [place] [address] Care Team Providers Name Role Phone Valerie Toledo MD Primary Care Provider Encounter Details Date Type Department Care Team Description 12/02/2008 Hospital Encounter [facility] - Danilo Toledo MD Other [address] [facility],[id number] [place] [address] (Wo rk) Social History Tobacco Use Types Packs/Day Years Used Date Never Assessed Sex Assigned at Date Recorded Not on file documented as of this encounter Discharge Disposition Disposition Code Departure Means Destination Home-Health Care Svc documented in this encounter Plan of Treatment Not on filedocumented as of this encounter Procedures Procedure Name Priority Date/Time Associated Diagnosis Comme [facility] CYTOPATHOLOGY Routine 04/17/2009 0:00 EST Results for this procedure are i n the results section . documented in this encounter Results CYTOPATHOLOGY (04/17/2009 0:00 EST) Pathology Report: CYTOPATHOLOGY REPORT ? [facility] Reports generated via electr onic interface contain original data; ? however they are lacking the format of the original report. ? Caution should be taken when reading/interpreting unformatted reports. ? Name: ? GARCÍA DAVISON ? Accession #: ? [id number] ? : ? 1950 (Age: 58) ??F ?Collect Date: ? 04/17/2009 ? Location: ? [facility] ? Receive Date: ? 04/19/2009 ? Provider: ?VALERIE P RATT MD ? Copy to: ? Specimen/Source: ? Pap Test, Cervix/Endocervix, ThinPrep Imaging System ? with manual evaluation ? Last Menstrual Period: ? Menstrual/ Status: ? Menopausal ? Other: ? HPVA - HPV testing requested if ASC-US on the current ThinPrep Pap test. ? SPECIMEN ADEQUACY ? Satisfactory for Eval uation ? - transformation zone compon ent absent ? GENERAL CATEGORIZATION ? Negative for Intraepi thelial Lesion or Malignancy ? Document reviewed and electr onically signed by: ? Ronel Shaun, CT(ASCP ) ? Report Date: ??12/31/ 2009 10:09 ? End of Report ? Specimen Performing Organization Address City/State/ZIP Code Phon e Number [facility] [address] [place] [address] SERVICES [facility] [address] [place] [address] documented in this encounter Visit Diagnoses Not on filedocumented in this encounter Care Teams Management Recruiter Relationship Specialty Start Date End Date Valerie Toledo MD PCP - General 11/02/08 [address] [place] [address] documented as of this encounter
--- OUTSIDE RECORDS SUMMARY | 2021-10-12 00:41 | XMS_ITS | Clinical Summary ---
:1950 Author Organization [facility] [place] [address] Care Team Providers Name Role Phone Eileen Oates Primary Care Provider Allergies Active Allergy Reactions Severity Noted Date Comments Allergen Xvm-Aoppm-Yjlub Bee Penicillins Venom-Wasp Zuisw-Qjkgs-Ssvea Hornet Venom-Yellow Hornet Venom-Yellow Jacket Medications Medication Sig Dispensed Refills Start Date End Date Status CIS Free Text Med - Daily 0 08/01/2008 Active Multivitamin CIS Free Text Med - Albuterol 0 08/01/2008 Active ASPIRIN ORAL 0 08/01/2008 Active ranitidine (ZANTAC) 300 mg tablet 0 2008 Active LORazepam (ATIVAN) 0.5 mg tablet 0 009 Active diclofenac (VOLTAREN) 75 mg EC 0 9 Active tablet IPRATROPIUM BROMIDE (ATROVENT NASL) 0 07/20 Active fluticasone-salmeterol (ADVAIR 0 9 Active DISKUS) 250-50 mcg/dose diskus inhaler lisinopril (PRINIVIL;ZESTRIL) 10 mg 0 07/20 Active tablet ipratropium-albuterol (DUONEB) 0.5 0 08/01 Active mg-3 mg(2.5 mg base)/3 mL nebulizer solution tiotropium (SPIRIVA WITH HANDIHALER) 0 Active 18 mcg inhalation capsule Mometasone (NASONEX) 50 0 08/01/2008 Active mcg/Actuation [place] Encounters Date Type Specialty Care Team Description 10/11/2021 TH Visit (TeleHealth) Pulmonology Kvng Disla Jr., MD 10/10/2021 Interpretation Only Eileen Oates DO 10/10/2021 Interpretation Only Eileen Oates DO 10/09/2021 Hospital Encounter Radiology Kvng Disla Chron ic obstructive MD Rivera pulmonary disetalya garcia, unspecified [employer] D type 10/01/2021 Telephone Pulmonology Tara Cameron Romaine 10/01/2021 Orders Only Pulmonology Kvng Disla Chronic obs tructive MD Rivera pulmonary disetalya garcia, unspecified [employer] D type (Primary Dx) 10/01/2021 Orders Only Pulmonology Kvng Disla Jr., MD 09/25/2021 Interpretation Only Eileen Oates DO from Last 3 Months Immunizations Name Administration Dates Next Due Influenza Vaccine, Whole 03/07/2010 Social History Tobacco Use Types Packs/Day Years Used Date Never Assessed Sex Assigned at Date Recorded Not on file Plan of Treatment Health Maintenance Due Date Last Done Comments Covid-19 Vaccine (#1) 12/20/1956 Hepatitis C Screening 12/20/1969 Tdap adult 12/20/1970 Tetanus vaccine 12/20/1970 Breast Cancer Share Decision Needed 1991 Colonoscopy 12/20/1996 Breast Cancer screening 12/20/2001 Zoster vaccine (1 of 2) 12/20/2001 Pneumoccocal Vaccine: 65+ (1 - PCV) 12/20/2016 Influenza (Flu) vaccine (1 of 1 - Influenza standard 12/20/2020 03/07/2010 series) Bone Density Scan Completed 09/25/2021 Procedures Procedure Name Priority Date/Time Associated Diagnosis Comme nts XR CHEST PA AND Routine 10/09/2021 11:30 AM Chronic obstructiv e Results for this LATERAL EDT pulmonary disease, procedure are in unspecified COPD the results type section. PFT SCAN 09/28/2021 12:00 AM Results for this EDT procedure are i n the results section. DXA CENTRAL SPINE, Routine 09/25/2021 11:06 AM Re sults for this HIP, AND/OR WHOLE EDT procedure are in BODY (GENERIC) the results section. from Last 3 Months Results XR Chest PA & Lateral (Generic) [...] who have questions please contact the health child care supervisor that requested your imaging first. ? Electronically signed by: Maxx Roth, [facility] ([phone]), at 10/09/2021 2:36 PM Narrative 10/09/2021 2:36 PM EDT EXAMINATION: XR [...] RIGHT diaphragmatic hernia unchanged since CT from 2015 Procedure Note Radha Ruiz MD - 10/09/2021Formattin [...] RIGHT diaphragmatic hernia unchanged since CT from 2015 IMPRESSION 1. No acute cardiopulmonary process. 2. [...] ho have questions please contact the health child care supervisor that requested your imaging first. Electronically signed by: Maxx Roth, [facility] ([phone]), at 10/09/2021 2:36 PM Kvng Disla Jr., MD IMG DX ORDERABLES SCAN DOC: PFT (09/28/2021 12:00 AM EDT) Narrative This result has an attachment that is no t available. Unknown MEDIA MGR SCAN EXT ORDR/RSLT DXA Central Spine, Hip, and/or Whole Body (Generic) (09/25/2021 11:06 AM EDT) P athologist Signature PT CLASS O RAD ADMITDTTM [facility] PT [facility] INFO [id number]^M RAD OLTENI^SANDR A^L EXAM DESC XDXAC^DEXA [facility] SCAN AXIAL^RIS Anatomical Region Laterality Modality C-spine, Hip N/A Radiographic Imaging Specimen (Source) Anatomical Location Collection Method / Collectio n Time Received Time / Laterality Volume Impressions 09/25/2021 1:27 PM EDT Osteoporosis. FRAX ten-year fracture risk: Major osteoporotic fracture: 21%. Hip fracture: 5%. Thank you for letting us participate in the care of this patient. ??If you are a health care provider and have any questi ons regarding this report, please contact the number below. ??For patients who have questions please contact the health child care supervisor that requested your imaging first. ? Electronically signed by: Joe peters MD, [facility] ([phone]), at 09/25/2021 1:27 PM Narrative 09/25/2021 1:27 PM EDT EXAMINATION: DEXA SCAN AXIAL CLINICAL HISTORY: screening TECHNIQUE: Scans were acquired at the nya mbar spine, left hip. COMPARISON: None. FINDINGS: Lowest T score at a diagnostic region of interest: T score: -2.6, HERNANDEZ:Femoral neck, WHO mario gnosis: Osteoporosis Procedure Note Joe Salcido MD - 09/25/2021For matting of this note might be different from the original. EXAMINATION: DEXA SCAN AXIAL CLINICAL HISTORY: screening TECHNIQUE: Scans were acquired at the nya mbar spine, left hip. COMPARISON: None. FINDINGS: Lowest T score at a diagnostic region of interest: T score: -2.6, HERNANDEZ:Femoral neck, WHO mario gnosis: Osteoporosis IMPRESSION Osteoporosis. FRAX ten-year fracture risk: Major osteoporotic fracture: 21%. Hip fracture: 5%. Thank you for letting us participate in the care of this patient. If you are a health care provider and have any questi ons regarding this report, please contact the number below. For patients w ho have questions please contact the health child care supervisor that requested your imaging first. Electronically signed by: Joe peters MD, [facility] ([phone]), at 09/25/2021 1:27 PM Eileen Oates DO IMG DEXA ORDERABLES from Last 3 Months Insurance Payer Benefit Plan / Subscriber ID Effective Dates Phone Addre ss Type Group [employer] [place] [id number] 2021-Prese [employer] [place] [address] MEDICARE MEDICARE PART [id number] 2021-Pauline [phone] [place] [id number] [phone] (Work) Advance Directives Documents on File Type Date Recorded Patient Awning Spreader Explanati on Advance Directives and Living 06/20/2010 8:27 AM Will Care Teams Outpatient Coding Specialist Relationship Specialty Start Date End Date Eileen Oates DO PCP - General Family Medicine 10/09/21 [address] [facility] [address] [place] [address]
--- NOTE | 2021-10-12 11:00 | DI.CTLCSR_ITS ---
Exam(s) CT CHEST LUNG CANCER SCREEN EXAM: CT CHEST LUNG CANCER SCREEN CLINICAL HISTORY: H/O TOBACCO USE, Z87.891 TECHNIQUE: Imaging Protocol: Axial computed tomography images with coronal and sagittal reformatted images were created and reviewed COMPARISON: No exams were available for comparison FINDINGS: Tracheobronchial tree: Patent where visualized. Pulmonary parenchyma: No consolidation or dominant measurable mass. Marked centrilobular emphysematou s changes are present in the lungs. Lung Nodules: There is a 1.2 cm mildly spiculated mass in the medial aspect of the left upper lobe. Mediastinum and Kathy: No dominant adenopathy or fluid collection. The esophagus is unremarkable.There is a large hiatal hernia. Thyroid gland: Unremarkable. Lymph nodes: Unremarkable. Pleura: No effusion or pneumothorax. Heart: The heart is not dilated. Coronary artery calcifications are present. No pericardial effusion . Aorta: Thoracic aorta non-dilated.Atherosclerosis is present. Upper abdomen: Status post cholecystectomy. Soft Tissues: There is a 2.9 x 1.4 cm soft tissue irregular density near the 6 o'clock position of th e left breast. Bones: Within normal limits. IMPRESSION: 1. 1.2 cm solid mass in the left upper lobe. 2. 2.9 x 1.4 cm irregular soft tissue density at the 6 o'clock position of the left breast. Mammograp hy correlation is recommended. Lung RADS Cat 4A - Suspicious: Findings for which additional diagnostic testing and/or tissue samplin g recommended Lung-RADS 1.0 CATEGORIES: Category 0 - Prior chest CT exam(s) being located for comparison. Category 1 - Annual screening in 12 months. No nodules or definitely benign nodules. Category 2 - Annual screening in 12 months. Benign appearance. Nodules with low likelihood of becomin g active cancer. Category 3 - 6-month follow-up. Probably benign. Short-term follow-up suggested. Nodules with low lik elihood of becoming active cancer. Category 4A - 3-month follow-up and CT/PET if >8 mm in size. Suspicious finding. Findings which requi re additional testing. Category 4B - Findings which require additional testing and tissue sampling. Suspicious finding. Category 4X - Category 3 or 4 nodules with additional features or imaging findings that increases the suspicion of malignancy. Modifier S- Potentially clinically significant finding. (Non lung cancer) RADIATION DOSE DELIVERED: 89.74mGy.cm Total DLP 2.21mGyCTDIvol 89.74mGy.cm Total DLP 2.21mGy CTDIvol DATA REPOSITORY: All CT scans at this facility are submitted to the National Radiology Data Registry (NRDR) Dose Index Registry (DIR) with the [employer] ([employer]). RADIATION OPTIMIZATION: All CT scans at this facility use at least one of these dose optimization te chniques: automated exposure control; mA and/or kV adjustment per patient size (includes targeted exa ms where dose is matched to clinical indication); or iterative reconstruction.
== END ==
PROVIDERS: PCP Legal Medicine; Visit Provider Family Medicine
DX: Z12.2 Encounter for screening for malignant neoplasm of respiratory organs (principal); Z87.891 Personal history of nicotine dependence; J43.2 Centrilobular emphysema; R91.8 Other nonspecific abnormal finding of lung field; N63.25 Unspecified lump in the left breast, overlapping quadrants
CPT/HCPCS: 71271

== ENCOUNTER 2022-10-23 15:59 | Outpatient (CLI) | payer MEDICARE, OTHER, SELFPAY ==
--- NOTE | 2022-10-23 | DI.US_ITS ---
Exam(s) US LOWER EXTREMITY VENOUS LT EXAM: US LOWER EXTREMITY VENOUS LT CLINICAL HISTORY: LUNG CANCER C34.12, SWELLING LLE R22.42. TECHNIQUE: Lower extremity venous ultrasound performed using grayscale, color-flow, and spectral Do ppler analysis. COMPARISON: No exams were available for comparison FINDINGS: The common femoral, femoral and popliteal veins demonstrate normal compressibility, augmentation, and color Doppler. The posterior tibial veins are patent. No saphenous vein thrombosis or other superfi cial venous thrombosis is seen. There is edema in the subcutaneous fat of the lower leg. No hematom a or Pepper's cyst is seen. IMPRESSION: Lower leg edema.. No evidence of DVT. DATA REPOSITORY:
== END 2022-10-23 16:19 ==
PROVIDERS: PCP Legal Medicine; Visit Provider Preventive Medicine Undersea and Hyperbaric Medicine
DX: R22.42 Localized swelling, mass and lump, left lower limb (principal); C34.12 Malignant neoplasm of upper lobe, left bronchus or lung
CPT/HCPCS: 93971